=== PATIENT | female | born 1970 | race Caucasian/White ===

== ENCOUNTER 2018-08-26 15:05 | Emergency (ER) | payer BC ==
[2018-08-26 15:16] VITALS: BP 141/83; PULSE 101; RESP 18; TEMP 98.2
[2018-08-26] MEDS ORDERED: HYDROcodone/APAP 5-325MG 1 EACH TAB PO STA (15:40)
[2018-08-26] MEDS ORDERED: DIPH,PERTUS(ACELL)TETVAC-LF 0.5 ML VIAL IM ONE (15:40)
[2018-08-26] MEDS ORDERED: ACET/COD 300 MG/30 MG STARTER PACK 6 TAB BTL PO STA (16:15)
--- NOTE | 2018-08-26 16:18 | ED ---
Lower Extremity Injury HPI - General Chief Complaint: Extremity Injury, Lower Stated Complaint: toe injury/ripped toenail off Time Seen by Provider: 08/26/18 15:17 Source: patient Mode of arrival: ambulatory Limitations: no limitations - History of Present Illness Initial Comments: 48-year-old female presenting today for chief complaint of right great toe nail pain. Patient states she stopped her toenail. She states she did not stub her toe. She states the toe nail completely came up. Patient states of blood. Patient states she presents emergency scar for removal. Patient denies any pain with range of motion of the great toe. She states is localized to the nailbed. Patient denies any other areas of injury or fall. Patient states tetanus up-to-date. Patient appears well, ambulatory. - Related Data Allergies Allergy/AdvReac Type Severity Reaction Status Date / Time No Known Allergies Allergy Verified 08/26/18 15:16 Review of Systems ROS Statement: Those systems with pertinent positive or pertinent negative responses have been documented in the HPI. ROS Other: All systems not noted in ROS Statement are negative. Past Medical History Past Medical History: Thyroid Disorder History of Any Multi-Drug Resistant Organisms: None Reported Additional Past Surgical History / Comment(s): thyroid removed Past Psychological History: No Psychological Hx Reported Smoking Status: Former smoker Past Alcohol Use History: Occasional General Exam - General Exam Comments Initial Comments: General: The patient is awake and alert, in no distress, and does not appear acutely ill. Eye: Pupils are equal, round and reactive to light, extra-ocular movements are intact. No nystagmus. There is normal conjunctiva bilaterally. No signs of icterus. Ears, nose, mouth and throat: There are moist mucous membranes and no oral lesions. Neck: The neck is supple, there is no tenderness or JVD. Cardiovascular: There is a regular rate and rhythm. No murmur, rub or gallop is appreciated. Respiratory: Lungs are clear to auscultation, respirations are non-labored, sulaiman ath sounds are equal. No wheezes, stridor, rales, or rhonchi. Musculoskeletal: Normal ROM, no tenderness. Strength 5/5. Sensation intact. Pulses equal bilaterally 2+. Neurological: A&O x 3. CN II-XII intact, There are no obvious motor or sensory deficits. Coordination appears grossly intact. Speech is normal. Skin: Skin is warm and dry and no rashes or lesions are noted. Paritally avulsed right great toenail, no nailbed laceration. No pain at the IP joint of the righ great toe, no bruising. Psychiatric: Cooperative, appropriate mood & affect, normal judgment. Limitations: no limitations Course Vital Signs 08/26/18 15:12 Temperature 98.2 F Pulse Rate 101 H Respiratory 18 Rate Blood Pressure 141/83 O2 Sat by Pulse 98 Oximetry Medical Decision Making - Medical Decision Making 48-year-old female presenting for toenail avulsion. Partial avulsion on examination. No evidence of nail bed laceration. Area was cleansed extensively with iodine.. Nail was kept in place for protection of nail bed. Sterile bandage applied. Patient initially stated unsure of tetanus however stated that she believed it was within the last 5 years refused repeat tetanus. Refused XR of the toe, stating it is not broken. At this time feel patient still for discharge with outpatient primary care follow-up. Patient is to be off work until primary care clearance. Pt agreeable with care plan, discharge and return parameters. Disposition Clinical Impression: Avulsed toenail Disposition: HOME SELF-CARE Condition: Good Instructions (If sedation given, give patient instructions): Nail Avulsion (ED) Additional Instructions: Please use medication as discussed-- no driving, use of alcohol, working while taking the Tylenol #3 starter park, take medication every 6 hours as needed for severe pain-do not take with Tylenol/acetominophen . Please follow-up with family doctor in the next 7 days, I do not recommend return to work until you are cleared and reassessed by your primary care provider. Please return to emergency room if the symptoms increase or worsen or for any other concerns. Is patient prescribed a controlled substance at d/c from ED?: No Referrals: Jarett Russell MD [Primary Care Provider] - 1-2 days Time of Disposition: 16:16
== END 2018-08-26 16:29 | disposition home or self-care (01) ==
LOC: EC 15:05
DX: S91.201A Unspecified open wound of right great toe with damage to nail, initial encounter (principal); Z87.891 Personal history of nicotine dependence; W22.8XXA Striking against or struck by other objects, initial encounter
CPT/HCPCS: 99283

== ENCOUNTER 2019-09-28 03:23 | Observation (INO) | payer OTHER, BC ==
[2019-09-28] MEDS ORDERED: ASPIRIN 81 MG PO STA (03:39)
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
[2019-09-28 04:07] LABS: Basophils % (A) 1 %; Eosinophils # (A) 0.2 k/uL (0-0.7); Eosinophils % (A) 4 %; HCT 41.6 % (34.0-46.0); HGB 13.1 gm/dL (11.4-16.0); Lymphocytes # (A) 1.8 k/uL (1.0-4.8); Lymphocytes % (A) 38 %; MCH 30.9 pg (25.0-35.0); MCHC 31.4 g/dL (31.0-37.0); MCV 98.4 fL (80.0-100.0); Monocytes # (A) 0.3 k/uL (0-1.0); Monocytes % (A) 7 %; Neutrophils # (A) 2.2 k/uL (1.3-7.7); Neutrophils % (A) 47 %; Platelet Count 285 k/uL (150-450); RBC 4.23 m/uL (3.80-5.40); WBC 4.7 k/uL (3.8-10.6)
[2019-09-28 04:19] LABS: ALT 31 U/L (4-34); AST 39 U/L (14-36); African American GFR (CKD) >90 (>60 ml/min/1.73 sqM); Albumin 4.2 g/dL (3.5-5.0); Alkaline Phosphatase 49 U/L (38-126); Anion Gap 9 mmol/L; Blood Urea Nitrogen 13 mg/dL (7-17); Carbon Dioxide 25 mmol/L (22-30); Chloride 106 mmol/L (98-107); Glucose 97 mg/dL (74-99); Magnesium 1.8 mg/dL (1.6-2.3); Non-African American GFR(CKD) >90 (>60 ml/min/1.73 sqM); Potassium 3.6 mmol/L (3.5-5.1); Sodium 140 mmol/L (137-145); Total Bilirubin 0.4 mg/dL (0.2-1.3); Total Protein 6.8 g/dL (6.3-8.2)
[2019-09-28 04:22] LABS: INR 0.9 (<1.2); Partial Thromboplastin Time 24.1 sec (22.0-30.0); Prothrombin Time 9.5 sec (9.0-12.0)
--- NOTE | 2019-09-28 04:25 | XR ---
EXAMINATION TYPE: XR chest 2V DATE OF EXAM: 09/28/2019 COMPARISON: NONE HISTORY: Chest pain Heart is normal. There are densely calcified granulomata at the right paratracheal region. There is calcified subcarinal lymph node. There is no pleural effusion. Lungs are clear of infiltrate. There a re no hilar masses. Bony thorax is intact. IMPRESSION: Old granulomatous disease. No evidence of acute lung disease.
[2019-09-28] MEDS ORDERED: NITROGLYCERIN SL TABS 0.4 MG TAB SUBLINGUAL PRN (04:41)
[2019-09-28 08:01] VITALS: RESP 14
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
[2019-09-28] MEDS ORDERED: ALPRAZolam 0.5 MG TAB PO PRN (10:23)
[2019-09-28] MEDS ORDERED: LEVOTHYROXINE 88 MCG TAB PO SCH (10:30)
[2019-09-28] MEDS ORDERED: ENOXAPARIN 40 MG/0.4 ML SYRINGE SQ SCH (10:30)
[2019-09-28 12:28] VITALS: BP 118/74; PULSE 79; TEMP 98
--- NOTE | 2019-09-28 13:20 | ECHOS ---
STRESS ECHOCARDIOGRAM LUMASON: INDICATIONS: Chest pain. MEDICATIONS: Synthroid. BASELINE HEART RATE: 62 BASELINE BLOOD PRESSURE: 133/68 MAXIMUM HEART RATE: 175 MAXIMUM BLOOD PRESSURE: 152/56 85% MPHR: 145 100% MPHR: 171 METS: 11.5 MAXIMUM STAGE REACHED: 4 TOTAL EXERCISE TIME: 11:44 CLINICAL INFORMATION: Baseline rhythm is sinus mechanism, rate 62, normal axis and intervals. Normal echocardiogram. Baseline blood pressure 133/68 mmHg. Patient exercised on Joseph protocol for 11 minutes 44 seconds reaching peak rate of 175 beats per minute which is equal to 100% maximum predicted heart rate. Peak blood pressure 152/56 mmHg. Test was terminated due to fatigue. There was no chest pain. Electrocardiograph monitoring revealed no evidence of diagnostic ischemic ST deviation. FINDINGS: Baseline echocardiogram revealed normal wall motion. At peak exercise, there was normal wall motion augmentation with no hypokinesis or dyskinesis. CONCLUSION: 1. Good exercise tolerance with normal echocardiograph response to exercise. 2. Normal stress echocardiogram with no evidence of stress-induced ischemia. MMODL / IJN: [id number] /
--- NOTE | 2019-09-28 13:25 | ECHOF ---
Referral Reason:cp MEASUREMENTS -------- HEIGHT: 172.7 cm WEIGHT: 79.4 kg BP: 126/70 RVIDd: 3.5 cm (< 3.3) IVSd: 1.1 cm (0.6 - 1.1) LVIDd: 5.5 cm (3.9 - 5.3) LVPWd: 1.0 cm (0.6 - 1.1) IVSs: 1.4 cm LVIDs: 3.4 cm LVPWs: 1.5 cm LA Diam: 3.7 cm (2.7 - 3.8) LAESV Index (A-L): 27.07 ml/m Ao Diam: 3.2 cm (2.0 - 3.7) AV Cusp: 2.2 cm (1.5 - 2.6) MV EXCURSION: 17.701 mm (> 18.000) MV EF SLOPE: 167 mm/s (70 - 150) EPSS: 0.8 cm MV E Marc: 0.80 m/s MV DecT: 328 ms MV A Marc: 0.74 m/s MV E/A Ratio: 1.08 FINDINGS -------- Sinus rhythm. This was a technically good study. The left ventricular size is normal. There is borderline concentric left ventricular hypertrophy. Overall left ventricular systolic function is normal with, an EF between 55 - 60 %. The right ventricle is mildly enlarged. Normal LA size by volume 22+/-6 ml/m2. The right atrial size is normal. Interatrial and interventricular septum intact. The aortic valve is trileaflet, and appears structurally normal. No aortic stenosis or regurgitation. The mitral valve is normal. There is trace mitral regurgitation. The tricuspid valve appears structurally normal. There is no pulmonic regurgitation present. The aortic root size is normal. Normal inferior vena cava with normal inspiratory collapse consistent with estimated right atrial pre ssure of 5 mmHg. There is no pericardial effusion. CONCLUSIONS -------- 1. There is borderline concentric left ventricular hypertrophy. 2. Overall left ventricular systolic function is normal with, an EF between 55 - 60 %. 3. The right ventricle is mildly enlarged. 4. Normal LA size by volume 22+/-6 ml/m2. 5. The aortic valve is trileaflet, and appears structurally normal. No aortic stenosis or regurgitati on. 6. There is trace mitral regurgitation. 7. The tricuspid valve appears structurally normal. 8. There is no pulmonic regurgitation present. 9. There is no pericardial effusion. HEATING ENGINEER: Cat Mercer RDCS
--- NOTE | 2019-09-28 13:31 | P.HPIM ---
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 Jarett Russell. Patient is here with the . 3 days ago patient had to shanna a percent on about 150 feet. When she stopped she was perspiring short of breath but tired. She called a persistent cough described as looking like should. Patient was sent home. Blo od pressure was running high at that time about 190 systolic. He rested the following morning patient got up she felt a little bit of chest pressure and the lower sternal area. No radiation. No dizziness no lightheadedness. Decided to come into the ER. Patient does not sleep well and has lack of sleep. Also should've timings of changed. Patient is rather somewhat anxious. Admitted for cardiac workup. Cardiology was consulted. No prior cardiac history. Patient to baseline is very active. Review of systems: GEN.: Tired EYES: None HEENT: None NECK: None RESPIRATORY: None CARDIOVASCULAR: None GASTROINTESTINAL: None GENITOURINARY: None MUSCULOSKELETAL: None LYMPHATICS: None HEMATOLOGICAL: None PSYCHIATRY: Anxious NEUROLOGICAL: [Doesn't sleep well Past medical history to include: Hypothyroid, anxiety, Social history: Patient is , so, alcohol occasionally, does smoke in the past. Currently using e cigarettes with nicotine. Family history: Reviewed, noncontributory to presentation Physical examination: VITAL SIGNS: 97.8, 75, 14, and 60-73, 100% on room air GENERAL: [BMI 26.6, sitting up slightly anxious. EYES: Pupils equal. Conjunctiva normal. HEENT: External appearance of nose and ears normal, oral cavity grossly normal. NECK: JVD not raised; masses not palpable. HEART: First and second heart sounds are normal; no edema. LUNGS: Respiratory rate normal; clear to auscultation. ABDOMEN: Soft, nontender, liver spleen not palpable, no masses palpable. PSYCH: [Alert and oriented x3; mood and affect slightly anxious l. NEUROLOGICAL: Cranial nerves grossly intact; no facial asymmetry, power and sensation grossly intact. LYMPHATICS: No lymph nodes palpable in the axilla and neck INVESTIGATIONS, reviewed in the clinical context: White count 4.7 hemoglobin 13.1 platelets 25 potassium 3.6 creatinine 0.69 Troponin I 3 negative EKG tracing personally reviewed by me-normal sinus rhythm Chest x-ray film personally reviewed by me-lung chavez clear Assessment: -Anterior chest wall pain with limited cardiac risk factors. Could be psychosomatic from anxiety. Cardiac cause to be ruled out. Troponins are negative. -Anxiety not otherwise specified -Poor sleep hygiene -Hypothyroid Plan: Home medications resumed. Patient received aspirin. Cardiology was consulted. They ordered a stress test. Past Medical History Past Medical History: Thyroid Disorder History of Any Multi-Drug Resistant Organisms: None Reported Additional Past Surgical History / Comment(s): thyroid removed Past Psychological History: No Psychological Hx Reported Smoking Status: Former smoker Past Alcohol Use History: Occasional Past Drug Use History: None Reported Additional Drug Use History / Comment(s): pt states she uses e-cigarrets with nicotine daily Medications and Allergies Home Medications Medication Instructions Recorded Confirmed Type ALPRAZolam [Xanax] 0.5 mg PO 5XD PRN 09/28/19 09/28/19 History Ascorbic Acid [Vitamin C] 500 mg PO DAILY 09/28/19 09/28/19 History Calcium Carbonate [Tums] 1,000 mg PO DAILY 09/28/19 09/28/19 History Cholecalciferol [Vitamin D3 (25 1,000 unit PO DAILY 09/28/19 09/28/19 History Mcg = 1000 Iu)] Ibuprofen [Motrin Ib] 600 mg PO Q8H PRN 09/28/19 09/28/19 History Levothyroxine Sodium [Synthroid] 175 mcg PO DAILY 09/28/19 09/28/19 History Multivitamins, Thera [Multivitamin 1 tab PO DAILY 09/28/19 09/28/19 History (formulary)] Allergies Allergy/AdvReac Type Severity Reaction Status Date / Time No Known Allergies Allergy Verified 09/28/19 08:39 Physical Exam Vitals: Vital Signs Temp Pulse Pulse Resp BP BP Pulse Ox 09/28/19 07:58 97.8 F 75 14 116/73 100 09/28/19 05:07 98.1 F 72 16 123/79 98 09/28/19 03:56 16 09/28/19 03:39 98.1 F 78 16 114/74 99 09/28/19 03:28 97.7 F 94 18 166/97 100 Intake and Output 09/27/19 09/28/19 09/28/19 22:59 06:59 14:59 Other: Voiding Method Toilet Toilet Weight 79.379 kg Results CBC & Chem 7: 09/28/19 03:55 09/28/19 03:55 Labs: Abnormal Lab Results - Last 24 Hours (Table) 09/28/19 Range/Units 03:55 AST 39 H (14-36) U/L Thrombosis Risk Factor Assmnt - Choose All That Apply Each Factor Represents 1 point: Age 41-60 years Thrombosis Risk Factor Assessment Total Risk Factor Score: 1 Thrombosis Risk Factor Assessment Level: Low Risk
--- NOTE | 2019-09-28 22:38 | P.DS ---
Providers Date of admission: 09/28/19 04:42 Expected date of discharge: 09/28/19 Attending physician: Nicolás Allen Consults: 09/28/19 04:42 Consult Physician Routine Consulting Provider: Moses Tello Consult Reason/Comments: chest pain Do you want consulting provider notified?: Yes Primary care physician: Jarett Russell [facility] Course: Chief Complaint: Chest pain History of presenting complaint: This is a pleasant 49-year-old patient of Dr. Jarett Russell. Patient is here with the . 3 days ago patient had to shanna a percent on about 150 feet. When she stopped she was perspiring short of breath but tired. She called a persistent cough described as looking like should. Patient was sent home. Blood pressure was running high at that time about 190 systolic. He rested the following morning patient got up she felt a little bit of chest pressure and the lower sternal area. No radiation. No dizziness no lightheadedness. Decided to come into the ER. Patient does not sleep well and has lack of sleep. Also should've timings of changed. Patient is rather somewhat anxious. Admitted for cardiac workup. Cardiology was consulted. No prior cardiac history. Patient to baseline is very active. Patient underwent a stress echocardiogram are unremarkable. Symptoms felt to be psychosomatic. Had a lengthy talk with the patient and her regarding lifestyle modifications modifications to alleviate stress. Patient also to work on sleep hygiene. Consultation: Dr. Monica Martinez from cardiology Physical examination: VITAL SIGNS: 98, 79, 14, 118/74, 96% room air GENERAL: Sitting up slightly anxious. EYES: Pupils equal. Conjunctiva normal. HEENT: External appearance of nose and ears normal, oral cavity grossly normal. NECK: JVD not raised; masses not palpable. HEART: First and second heart sounds are normal; no edema. LUNGS: Respiratory rate normal; clear to auscultation. ABDOMEN: Soft, nontender, liver spleen not palpable, no masses palpable. PSYCH: [Alert and oriented x3; mood and affect slightly anxious . INVESTIGATIONS, reviewed in the clinical context: White count 4.7 hemoglobin 13.1 platelets 25 potassium 3.6 creatinine 0.69 Troponin I 3 negative EKG tracing personally reviewed by me-normal sinus rhythm Chest x-ray film personally reviewed by me-lung chavez clear Assessment: -Anterior chest wall pain with limited cardiac risk factors. Could be psychosomatic from anxiety. -Anxiety not otherwise specified -Poor sleep hygiene -Hypothyroid Disposition: Home Patient Condition at Discharge: Stable Plan - Discharge Summary Discharge Rx Participant: No New Discharge Prescriptions: Continue Multivitamins, Thera [Multivitamin (formulary)] 1 tab PO DAILY Ibuprofen [Motrin Ib] 600 mg PO Q8H PRN PRN Reason: Pain Cholecalciferol [Vitamin D3 (25 Mcg = 1000 Iu)] 1,000 unit PO DAILY Calcium Carbonate [Tums] 1,000 mg PO DAILY Ascorbic Acid [Vitamin C] 500 mg PO DAILY ALPRAZolam [Xanax] 0.5 mg PO 5XD PRN PRN Reason: Anxiety Levothyroxine Sodium [Synthroid] 175 mcg PO DAILY Discharge Medication List ALPRAZolam [Xanax] 0.5 mg PO 5XD PRN 09/28/19 [History] Ascorbic Acid [Vitamin C] 500 mg PO DAILY 09/28/19 [History] Calcium Carbonate [Tums] 1,000 mg PO DAILY 09/28/19 [History] Cholecalciferol [Vitamin D3 (25 Mcg = 1000 Iu)] 1,000 unit PO DAILY 09/28/19 [History] Ibuprofen [Motrin Ib] 600 mg PO Q8H PRN 09/28/19 [History] Levothyroxine Sodium [Synthroid] 175 mcg PO DAILY 09/28/19 [History] Multivitamins, Thera [Multivitamin (formulary)] 1 tab PO DAILY 09/28/19 [History] Follow up Appointment(s)/Referral(s): Luis Martinez MD [STAFF PHYSICIAN] - 2 Weeks Jarett Russell MD [Primary Care Provider] - 1-2 days Patient Instructions/Handouts: Chest Pain (ED) Discharge Disposition: HOME SELF-CARE
[2019-09-29] MEDS ORDERED: ASPIRIN 325 MG TAB PO SCH (09:00)
[2019-09-29] MEDS ORDERED: ASPIRIN 81 MG PO SCH (09:00)
== END 2019-09-28 13:41 | disposition home or self-care (01) ==
LOC: EC 03:23 → 1SOBS 04:42
PROVIDERS: ADMIT Hospitalist; ATTEND Hospitalist
DX: R07.89 Other chest pain (principal); F41.9 Anxiety disorder, unspecified; E89.0 Postprocedural hypothyroidism; Z72.821 Inadequate sleep hygiene; Z72.820 Sleep deprivation; I51.7 Cardiomegaly; F17.290 Nicotine dependence, other tobacco product, uncomplicated; Z03.818 Encounter for observation for suspected exposure to other biological agents ruled out; Z79.899 Other long term (current) drug therapy; Z79.890 Hormone replacement therapy
CPT/HCPCS: 99285; 36415; 93005; 93306; 93351; 80053; 83735; 84484; 85025; 85610; 85730; 71046; G0378; U0003

== ENCOUNTER 2020-01-22 11:20 | Emergency (ER) | payer BC, OTHER ==
[2020-01-22 11:27] VITALS: RESP 18; TEMP 98.4
--- NOTE | 2020-01-22 12:05 | XR ---
EXAMINATION TYPE: XR KUB DATE OF EXAM: 01/22/2020 11:55 AM CLINICAL HISTORY: Constipation and pain. TECHNIQUE: Two Upright KUB images of the abdomen are obtained. COMPARISON: None. FINDINGS: Scattered gas is seen in non-distended small bowel loops. Gas and fecal material is seen in non-distended colon and rectum. Some prominence of fecal material in the rectum. There is no viscero megaly, pneumoperitoneum, or abnormal calcification appreciated. The lung bases are clear. Moderate D isc space narrowing L4-L5 level. IMPRESSION: Overall nonobstructive bowel gas pattern. Mild to moderate rectal fecal stasis.
--- NOTE | 2020-01-22 13:19 | ED ---
General Adult HPI - General Chief complaint: Abdominal Pain Stated complaint: post op constipation Source: patient, RN notes reviewed, old records reviewed Mode of arrival: wheelchair Limitations: no limitations - History of Present Illness Initial comments: This is a 49-year-old female who presents emergency Department complaining that she has been constipated since her surgery on her foot. Days ago patient states on night she took laxatives on Friday morning she had a very liquidy bowel movement. Patient states since then she's been having quite a bit of pain in her anus and it is difficult not to have a bowel movement because the pain is so significant. Patient states she has had no blood per stool. Patient has no abdominal pain. Occasionally however she does have some abdominal cramping. - Related Data Home Medications Medication Instructions Recorded Confirmed ALPRAZolam [Xanax] 0.5 mg PO 5XD PRN 09/28/19 09/28/19 Ascorbic Acid [Vitamin C] 500 mg PO DAILY 09/28/19 09/28/19 Calcium Carbonate [Tums] 1,000 mg PO DAILY 09/28/19 09/28/19 Cholecalciferol [Vitamin D3 (25 1,000 unit PO DAILY 09/28/19 09/28/19 Mcg = 1000 Iu)] Ibuprofen [Motrin Ib] 600 mg PO Q8H PRN 09/28/19 09/28/19 Levothyroxine Sodium [Synthroid] 175 mcg PO DAILY 09/28/19 09/28/19 Multivitamins, Thera [Multivitamin 1 tab PO DAILY 09/28/19 09/28/19 (formulary)] Allergies Allergy/AdvReac Type Severity Reaction Status Date / Time No Known Allergies Allergy Verified 01/22/20 11:27 Review of Systems ROS Statement: Those systems with pertinent positive or pertinent negative responses have been documented in the HPI. ROS Other: All systems not noted in ROS Statement are negative. Past Medical History Past Medical History: Thyroid Disorder History of Any Multi-Drug Resistant Organisms: None Reported Additional Past Surgical History / Comment(s): thyroid removed, bunyon repair Past Psychological History: No Psychological Hx Reported Smoking Status: Former smoker Past Alcohol Use History: Occasional Past Drug Use History: None Reported General Exam - General Exam Comments Initial Comments: GENERAL: Patient is well-developed and well-nourished. Patient is nontoxic and well- hydrated and is in moderate distress. ENT: Neck is soft and supple. No significant lymphadenopathy is noted. Oropharynx is clear. Moist mucous membranes. Neck has full range of motion without eliciting any pain. EYES: The sclera were anicteric and conjunctiva were pink and moist. Extraocular movements were intact and pupils were equal round and reactive to light. Eyeli ds were unremarkable. ABDOMEN: Soft and nontender with normal bowel sounds. No palpable organomegaly was noted. There is no palpable pulsatile mass. RECTAL: No fissure was noted on rectal exam. There was no obvious sites of blood. On digital examination there was no significant pain however did cause her some pressure. SKIN: Skin is clear with no lesions or rashes and otherwise unremarkable. NEUROLOGIC: Patient is alert and oriented x3. Cranial nerves II through XII are grossly intact. Normal speech, volume and content. Symmetrical smile. Cerebellar exam grossly intact. MUSCULOSKELETAL: Normal extremities with adequate strength and full range of motion. PSYCHIATRIC: Normal psychiatric evaluation. Limitations: no limitations Course Vital Signs 01/22/20 11:24 Temperature 98.4 F Pulse Rate 115 H Respiratory 18 Rate Blood Pressure 154/84 O2 Sat by Pulse 97 Oximetry Medical Decision Making - Medical Decision Making Patient's KUB showed a large amount of stool in the rectum. Patient was given an enema and her symptoms completely resolved. Disposition Clinical Impression: Constipation Disposition: HOME SELF-CARE Instructions (If sedation given, give patient instructions): Constipation (ED), High Fiber Diet (ED) Additional Instructions: Continue MiraLAX and increase water intake. Is patient prescribed a controlled substance at d/c from ED?: No Referrals: Jarett Russell MD [Primary Care Provider] - 1-2 days Time of Disposition: 13:56
[2020-01-22 14:03] VITALS: BP 122/79; PULSE 81
== END 2020-01-22 14:02 | disposition home or self-care (01) ==
LOC: EC 11:20
DX: K59.00 Constipation, unspecified (principal); E07.9 Disorder of thyroid, unspecified; Z79.890 Hormone replacement therapy; Z79.899 Other long term (current) drug therapy; Z87.891 Personal history of nicotine dependence
CPT/HCPCS: 74018; 99284

== ENCOUNTER → 2021-02-19 | Outpatient (CLI) | payer BC ==
--- NOTE | 2021-02-21 08:47 | MM ---
Reason for exam: screening (asymptomatic). Last mammogram was performed 7 years and 10 months ago. History: Family history of breast cancer in paternal grandmother at age 55. Benign right US cyst aspiration ea add of the right breast, May 07, 2010. Benign right US cyst aspiration ea add of the right breast, May 07, 2010. Benign right US cyst aspiration of the right breast, May 07, 2010. Physical Findings: A clinical breast exam by your physician is recommended on an annual basis and results should be correlated with mammographic findings. MG Screening Mammo w CAD Bilateral CC and MLO view(s) were taken. No prior studies available for comparison. The breast tissue is heterogeneously dense. This may lower the sensitivity of mammography. There is no discrete abnormality. ASSESSMENT: Benign, BI-RAD 2 RECOMMENDATION: Routine screening mammogram of both breasts in 1 year.
== END | disposition home or self-care (01) ==
LOC: RADMAMWWP 16:30
PROVIDERS: ATTEND Family Medicine
DX: Z12.31 Encounter for screening mammogram for malignant neoplasm of breast (principal); Z80.3 Family history of malignant neoplasm of breast
CPT/HCPCS: 77067